=== PATIENT | female | born 1990 | race Hispanic/Latino ===

== ENCOUNTER 2018-08-05 19:15 | Emergency (ER) | payer SELFPAY ==
[2018-08-05 19:42] LABS: Bilirubin Negative (Negative); Blood, Urine Trace (Negative); Clarity TURBID (Clear); Glucose, Urine (Dipstick) >=1000 mg/dL (Negative); Leukocyte Moderate (Negative); Nitrite Positive (Negative); Protein, Urine (Dipstick) 30 mg/dL (Neg-Trace); Specific Gravity, Urine 1.038 (1.002-1.036)
[2018-08-05 19:48] LABS: Bacteria/HPF 4+ HPF (None Seen); Hyaline Casts/LPF 0-3 HYALINE CAST LPF (0-3 Hyaline); Pathc Cast-AUWi Flag 0.26 (0-2.49); Squamous Epithelial 0-3 HPF (0-3)
--- NOTE | 2018-08-05 19:56 | RAD ---
RADIOGRAPH CHEST 2 VIEWS: 08/05/18 HISTORY: 28-year-old female with cough. FINDINGS: There is no air space density, pulmonary edema, pleural effusion, pneumothorax, or cardiomegaly. IMPRESSION: No acute cardiopulmonary findings. velia [] POS: [facility]
[2018-08-05] MEDS ORDERED: cefTRIAXone\\ROCEPHIN 1 GM VIAL ONE (20:20)
[2018-08-05] MEDS ORDERED: Lidocaine 2% 10 ML INJ ONE (20:20)
[2018-08-05] MEDS ORDERED: Lidocaine 1% PF 5 ML VIAL ONE ×2 (20:21)
== END 2018-08-05 20:47 | disposition home or self-care (01) ==
LOC: ERS 19:15
DX: J06.9 Acute upper respiratory infection, unspecified (principal); N39.0 Urinary tract infection, site not specified; E11.9 Type 2 diabetes mellitus without complications; F41.9 Anxiety disorder, unspecified; F17.210 Nicotine dependence, cigarettes, uncomplicated; Z79.4 Long term (current) use of insulin
CPT/HCPCS: 71046; 81003; 81015; 87077; 87086; 87186; 96372; J0696; J2001

== ENCOUNTER 2018-11-09 22:36 | Emergency (ER) | payer SELFPAY ==
--- NOTE | 2018-11-09 22:55 | RAD ---
LEFT HAND THREE VIEWS: 11/09/18 HISTORY: 28-year-old female with history of injury after hitting hand on door. There is a minimally displaced somewhat volarly angulated oblique fracture through the distal fifth m etacarpal. No evidence of other acute fracture or dislocation. IMPRESSION: Minimally volarly angulated minimally displaced oblique fracture of the distal fifth metacarpal. POS: [facility]
[2018-11-09] MEDS ORDERED: Lidocaine 1% (PF) 30 ML VIAL ONE (23:43)
[2018-11-09] MEDS ORDERED: Ketorolac Tromethamine 30 MG/ML VIAL ONE (23:44)
[2018-11-09] MEDS ORDERED: HYDROcodone/Acetaminophen 10/325 mg Tablet ONE (23:44)
--- NOTE | 2018-11-10 07:49 | RAD ---
2 VIEWS LEFT HAND: Date: 11/10/18 COMPARISON: 11/09/18. HISTORY: Evaluate following reduction. FINDINGS: There is casting material overlying the forearm and the medial aspect of the hand. As seen on the gennaro or examination, there is an obliquely oriented distal left fifth metacarpal shaft fracture with volar angulation. No significant change in the orientation of the distal fracture fragment. No new fractur e is seen. IMPRESSION: Stable fracture deformity involving the distal aspect of the left fifth metacarpal. POS: [facility]
== END 2018-11-10 00:11 | disposition home or self-care (01) ==
LOC: ERS 22:36
DX: S62.327A Displaced fracture of shaft of fifth metacarpal bone, left hand, initial encounter for closed fracture (principal); E11.9 Type 2 diabetes mellitus without complications; F41.9 Anxiety disorder, unspecified; Z87.891 Personal history of nicotine dependence; Z97.4 Presence of external hearing-aid; W22.8XXA Striking against or struck by other objects, initial encounter
CPT/HCPCS: 26600; 96372; J1885; J2001

== ENCOUNTER 2019-05-18 13:25 | Emergency (ER) | payer SELFPAY ==
--- NOTE | 2019-05-18 16:56 | RAD ---
Chest 2 views HISTORY: Chest pain. COMPARISON: 08/05/2018. FINDINGS: Cardiac silhouette and pulmonary vasculature are unremarkable. Mediastinum is midline. No c onfluent airspace consolidation, pneumothorax, or pleural fluid are apparent. IMPRESSION: No active cardiopulmonary abnormalities are demonstrated.
[2019-05-18] MEDS ORDERED: Naproxen 500 MG TAB ONE (17:10)
--- NOTE | 2019-05-21 13:29 | EKG ---
Test Reason : CP Blood Pressure : / mmHG Vent. Rate : 070 BPM Atrial Rate : 070 BPM P-R Int : 128 ms QRS Dur : 088 ms QT Int : 380 ms P-R-T Axes : 059 016 030 degrees QTc Int : 410 ms Normal sinus rhythm Normal ECG Confirmed by TERESA KEANE DO ([id number]), supervising film or videotape editor MEETA CRAFT ([id number] on 05/21/2019 1:29:36 PM Referred By: Confirmed By:TERESA KEANE DO
== END 2019-05-18 17:15 | disposition home or self-care (01) ==
LOC: ERS 13:25
DX: R07.89 Other chest pain (principal); E11.9 Type 2 diabetes mellitus without complications; F41.9 Anxiety disorder, unspecified; F32.9 Major depressive disorder, single episode, unspecified; Z87.891 Personal history of nicotine dependence; Z79.4 Long term (current) use of insulin
CPT/HCPCS: 71046; 93005

== ENCOUNTER 2020-01-12 16:49 | Emergency (ER) | payer SELFPAY ==
[2020-01-12] MEDS ORDERED: Ketorolac Tromethamine 30 MG/ML VIAL ONE (18:22)
[2020-01-12] MEDS ORDERED: diphenhydrAMINE 50 MG/ML VIAL ONE (18:22)
[2020-01-12] MEDS ORDERED: Metoclopramide HCl 10 MG TAB ONE (18:23)
--- NOTE | 2020-01-12 18:47 | CT ---
CT HEAD WITHOUT IV CONTRAST COMPARISON: 07/12/2011 HISTORY: Headache after bumping back of head on Thursday. Continuation of pain with nausea. TECHNIQUE: Axial CT imaging at 5 mm intervals from vertex through skull base without contrast FINDINGS: There is no evidence of an acute infarction, hemorrhage, mass effect, or midline shift. The ventricul ar system is normal in size, shape, and position. Visualized paranasal sinuses are clear. Osseous structures appear intact.CT head is stable compared to prior exam. IMPRESSION: 1. No acute intracranial abnormality demonstrated.
== END 2020-01-12 19:01 | disposition home or self-care (01) ==
LOC: ERS 16:49
DX: R51 Headache (principal); E11.9 Type 2 diabetes mellitus without complications; F41.9 Anxiety disorder, unspecified; F32.9 Major depressive disorder, single episode, unspecified; F17.210 Nicotine dependence, cigarettes, uncomplicated; Z79.4 Long term (current) use of insulin
CPT/HCPCS: 70450; 96372; J1200; J1885

== ENCOUNTER 2021-04-30 09:29 | Emergency (ER) | payer SELFPAY ==
[2021-04-30] MEDS ORDERED: Lidocaine 1% (PF) 30 ML VIAL ONE (11:51)
[2021-04-30] MEDS ORDERED: Ketorolac Tromethamine 30 MG/ML VIAL ONE (12:06)
== END 2021-04-30 14:41 | disposition home or self-care (01) ==
LOC: ERS 09:29
DX: N76.4 Abscess of vulva (principal); N76.0 Acute vaginitis; E11.9 Type 2 diabetes mellitus without complications; F17.210 Nicotine dependence, cigarettes, uncomplicated
CPT/HCPCS: 56405; 87070; 96372; J1885; J2001

== ENCOUNTER 2021-07-30 16:38 | Emergency (ER) | payer SELFPAY ==
[2021-07-30] MEDS ORDERED: Lidocaine 1% w/Epinephrine 1:100K 20 ML VIAL ONE (17:41)
[2021-07-30] MEDS ORDERED: Ketorolac Tromethamine 30 MG/ML VIAL ONE ×2 (17:48→17:49)
[2021-07-30] MEDS ORDERED: Vancomycin 1 GM/200 ML BAG ONE (17:56)
[2021-07-30] MEDS ORDERED: Morphine 4 MG/ML VIAL ONE (17:56)
== END 2021-07-30 19:40 | disposition home or self-care (01) ==
LOC: ERS 16:38
DX: L02.415 Cutaneous abscess of right lower limb (principal); E11.9 Type 2 diabetes mellitus without complications; F17.210 Nicotine dependence, cigarettes, uncomplicated; Z79.4 Long term (current) use of insulin
CPT/HCPCS: 10060; 36416; 96365; 96375; J1885; J2270; J3370